=== PATIENT | female | born 1940 | race Caucasian/White ===

== ENCOUNTER 2017-09-09 04:15 | Inpatient (IN) | payer OTHER ==
[~2017-09-09] VITALS: Ht 154.9 cm; Wt 88.5 kg
[~2017-09-09 04:15] MED LIST: BYSTOLIC20 M1 PO; COUMADIN2.5 M1 PO; CRESTOR20 M2 PO; DILTIAZEM 24HR240 MG PO; GLUCOPHAGE500 M1 PO; LASIX40 M1 PO; LEVOTHYROXINE50 MCG PO; MULTIVITAMINS1 EAC9 PO; SLOW FE142 MG; SPIRONOLACTONE25 M1 PO; TRAMADOL HCL50 M1 PO; TYLENOL EXTRA500 M2 PO; VASOTEC20 M1 PO
[2017-09-09 10:46] LABS: PT 14.9 SEC (9.4-12.5)
--- NOTE | 2017-09-09 15:10 | Operative Report ---
Operative/Inv Procedure Report Surgery Date: 09/09/17 Name of Procedure: Right total hip replacement Pre-Operative Diagnosis: Primary right hip DJD Post-Operative Diagnosis: Same Estimated Blood Loss: 300 Surgeon/Lurer: Huong CUI,Param Burks Anesthesia: block Operative/Procedure Note Note: Description of Procedure: The patient was taken to the operating room and positively identified. After induction of spinal anesthesia and administration of appropriate pre-operative antibiotics, the patient was positioned supine on the operating room table and all bony prominences were well padded. After performing a surgical timeout, the right lower extremity was prepped and draped in the usual sterile fashion. A direct anterior approach was made to the right hip. The incision was carried sharply through superficial soft tissues to the level of the fascia. Meticulous hemostasis was maintained with Bovie electocautery. The fascia over the tensor fascia adrian muscle was opened sharply and the interval between the TFL and the sartorius was entered bluntly taking care to stay lateral to the lateral femoral cutaneous nerve. Retractors were placed around the femoral neck and the pericapsular fat was identified. The ascending branches of the lateral femoral circumflex vessels were identified and carefully coagulated. The pericapsular fat and anterior capsule were then resected. A napkin ring osteotomy was performed and the femoral head was removed without difficulty. Attention was then turned to the acetabulum. After appropriate placement of retractors, the acetabulum was exposed. Soft tissue was cleaned from the acetabular margin and notch. Overhanging osteophytes were removed and the teardrop was exposed. The acetabulum was then sequentially reamed to accept a 52 mm Juanito Tritanium hemispherical solid shell. This was impacted into place in the appropriate position and fitted with a 32 mm Trident X3 zero degree eccentric polyethylene insert. Attention was then turned to the femur. After performing the appropriate ligament releases, the proximal femur was exposed. It was then sequentially broached to accept a size #3 [place] Accolade 2 stem. This was trialed for leg length and stability. The trial component was removed and the final component was impacted into place. The trunnion was carefully cleaned and fit with a 32 mm, +4 Biolox delta ceramic femoral head. The hip was reduced and put through a full range of motion and found to be stable. The articular space was then irrigated with sterile saline. The periarticular soft tissues were infilitrated with Marcaine. The fascial layer was closed with interrupted #1 vicryl suture and the skin was re-approximated with interrupted 2 -0 vicryl. The skin was closed with a running 3-0 V-Lock suture. Steri-strips and a sterile dressing were applied. The patient was awakened and taken to the recovery room in satisfactory condition.
--- NOTE | 2017-09-09 15:58 | Admission Core Measures ---
Acute Coronary Syndrome (CM) ACS Core Measures Acute Coronary Syndrome Diagnosis No Congestive Heart Failure (NEW) CHF Core Measures Congestive Heart Failure Diagnosis No Cerebrovascular Accident (NEW) CVA Core Measures CVA/TIA Diagnosis No Venous Thromboembolism VTE Core Chloe (View Protocol) VTE Risk Factors Surgery No Mechanical VTE Prophylaxis d/t N/A MechProphylax Ordered No VTE Pharm Prophylaxis d/t NA PharmProphylax ordered Problem List As ranked by this Provider includes Assessment & Plan 1. Unilateral primary osteoarthritis, right hip HOME MEDS Home Med List Acetaminophen (Tylenol Extra Strength) 500 MG TABLET 2 TAB PO Q6 PAIN ( Reported) Diltiazem HCl (Diltiazem 24HR ER) 240 MG CAP.ER.24H 1 CAP PO DAILY CARDIAC ( Reported) Enalapril Maleate (Vasotec) 20 MG TABLET 1 TAB PO BID HTN (Reported) Furosemide (Lasix) 40 MG TABLET 1 TAB PO DAILY CARDIAC (Reported) Levothyroxine Sodium 50 MCG TABLET 1 TAB PO DAILY REPLACEMENT (Reported) Metformin Hydochloride (Glucophage) 500 MG TABLET 1 TAB PO BID DIABETES ( Reported) Multiple Vitamin (Multivitamins) 1 EACH TABLET 1 TAB PO DAILY SUPPLEMENT ( Reported) Nebivolol HCl (Bystolic) 20 MG TABLET 2 TAB PO DAILY CARDIAC (Reported) Rosuvastatin Calcium (Crestor) 20 MG TABLET 1 TAB PO DAILY CHOLESTEROL ( Reported) Spironolactone 25 MG TABLET 1 TAB PO DAILY HTN (Reported) Tramadol HCl 50 MG TABLET 1 TAB PO TIDPRN PAin (Reported) Warfarin Sodium (Coumadin) 2.5 MG TABLET 1 TAB PO DAILY AFIB (Reported)
[2017-09-09] MEDS ORDERED: PRILOSEC OTC20 M1 PO (16:01)
[2017-09-09] MEDS ORDERED: MIRALAX17 G1 PO (16:01)
[2017-09-09] MEDS ORDERED: DILAUDID2 M1 PO (16:01)
[2017-09-09] MEDS ORDERED: COLACE100 M1 PO (16:01)
[2017-09-09] MEDS ORDERED: ASPIRIN EC81 M1 PO (16:01)
--- NOTE | 2017-09-09 16:07 | Patient Discharge Instructions ---
Discharge Instructions General Discharge Information You were seen/treated for: Right hip pain related to unilateral primary osteoarthritis. Urinary tract infection You had these procedures: Right total hip replacement Watch for these problems: Increasing pain despite the use of pain medication Increasing redness, warmth or swelling Drainage of any type from incision Inability to bear weight on operative leg Persistent nausea and vomiting Fever greater than 101.5 degrees Pain or difficulty with urination Call Surgeon to remove: Lorraine Do not soak the wound: Yes No bath, but you may shower: Yes Other wound care: Please keep wound clean and dry. No ointments or lotions of any type on or near incision at any time. No exceptions. Your dressing will be changed by your nurse on the second day after your surgery. Daily dry dressing changes are recommended each day thereafter. Do not soak your wound in a bath at any time until otherwise indicated by your surgeon. You may shower, please dry wound immediately after shower with a clean towel. Special Instructions: Aspirin: You are taking this medication to help prevent blood clot formation while your coumadin level rises. Please take with food to protect your stomach lining. Please take as directed, Dr. Borja would like you to take it for three additional days following hospital discharge. Constipation: Pain medication can cause constipation. Dr. Borja has recommended that you take Colace and miralax each day. You may discontinue this medication if you develop loose stool or diarrhea. If you wish to continue this medication, it is available over the counter. If you are unable to move your bowels after several days, if you are unable to pass gas and are developing bloating, nausea, or vomiting as a result, please contact your doctor. Coumadin: You are taking this medication to help prevent the development of blood clots, both from surgery and from atrial fibrilation. Another name for this medication is warfarin. As I'm sure you are aware, the daily dose is subject to change. It is based on lab work called INR which will be tested at a minimum of two times per week. Dr. Borja or your desktop technician will instruct you as to how much Coumadin you are to be taking. Please be sure to have communicated with him or his office regarding your doses prior to taking. Diet Continue normal diet: Yes Recommended Diet: Heart Healthy Activity Full Activity/No Limits: No Activity Self Limited: Yes Pounds, do NOT lift more than: 10 Acute Coronary Syndrome Inclusion Criteria At DC or during hospital stay patient has or had the following: ACS DIAGNOSIS No Discharge Core Measures Meds if any: Prescribed or Continued at Discharge Meds if any: NOT Prescribed or Continued at Discharge Congestive Heart Failure Inclusion Criteria At DC or during hospital stay patient has or had the following: CHF DIAGNOSIS No Discharge Core Measures Meds if any: Prescribed or Continued at Discharge Meds if any: NOT Prescribed or Continued at Discharge Cerebrovascular accident Inclusion Criteria At DC or during hospital stay patient has or had the following: CVA/TIA Diagnosis No Discharge Core Measures Meds if any: Prescribed or Continued at Discharge Meds if any: NOT Prescribed or Continued at Discharge Venous thromboembolism Inclusion Criteria VTE Diagnosis No VTE Type NONE VTE Confirmed by (Test) NONE Discharge Core Measures - Per Current guidelines, there needs to be overlap - treatment for the first 5 days of Warfarin therapy. - If discharged on Warfarin prior to 5 days of - overlap therapy, the patient will need to be - assessed for post discharge needs including - *Post discharge parental anticoagulation - *Warfarin and/or parental anticoagulation education - *Follow up date to check INR post discharge At least 5 days overlap therapy as Inpatient No Meds if any: Prescribed or Continued at Discharge Note: Overlap Therapy is Warfarin and Anticoagulant Meds if any: NOT Prescribed or Continued at Discharge
--- NOTE | 2017-09-09 16:09 | Surgical Discharge Summary ---
Visit Information Visit Dates Admission Date: 09/09/17 Discharge Date: 09/14/17 History of Present Illness Chief Complaint: Right hip pain related to unilateral primary osteoarthritis Medical History Isolation History: Standard Surgical History Pertinent Surgical History: non-contributory Review of Systems: See H&P Hospital Course Course Attending Physician: Param Borja MD Primary Care Physician: Jessica Hospital Course: Patient was admitted to the hospital for an elective total joint replacement. The procedure was tolerated well and patient was transferred to a general surgical floor. Diet was advanced and tolerated.. The patient was evaluated and treated by physical therapy. She suffered from an episode of transient confusion post operatively and was evaluated by the medical team. A work up included a UA which was positive for a UTI and she was begun on augmentin. She was also felt to be somewhat dehydrated and was given a bolus of IV fluid. Her confusion resolved completely and no further work up was indicated. Her INR was therapeutic on coumadin and in fact elevated quickly to a supratherapeutic level which was monitored. At the time of hospital discharge, the vital signs were stable, neurovascular status was intact, and pain was controlled with the use of oral pain medications. Complications: None Allergies: Coded Allergies: No Known Allergies (09/08/17) Disposition Summary Disposition Principal Diagnosis: Right hip unilateral primary osteoarthritis Additional Diagnosis: None Discharge Disposition: home health services Discharge Instructions General Discharge Information Code Status: Full Code Patient's Diet: Heart healthy, advance as tolerated Patient's Activity: WBAT Follow-Up Instructions/Appts: Follow up with Dr. Borja in 6 weeks from date of surgery. Please call office to arrange &/or confirm this appointment. Medications at Discharge Discharge Medications: Stop taking the following medications: Tramadol HCl (Tramadol HCl) 50 MG TABLET ORAL THREE TIMES A DAY NEEDED Continue taking these medications: Diltiazem HCl (Diltiazem 24HR ER) 240 MG CAP.ER.24H 1 Capsule ORAL DAILY Furosemide (Lasix) 40 MG TABLET 1 Tablet ORAL DAILY Enalapril Maleate (Vasotec) 20 MG TABLET 1 Tablet ORAL TWICE DAILY Rosuvastatin Calcium (Crestor) 20 MG TABLET 1 Tablet ORAL DAILY Warfarin Sodium (Coumadin) 2.5 MG TABLET 1 Tablet ORAL DAILY Instructions: Dose according to INR. Goal INR 2-3. INR daily until stable. Comments: Note that patient is on antibiotics for a UTI and will need to have dose adjustment to avoid supratherapeutic INR Spironolactone (Spironolactone) 25 MG TABLET 1 Tablet ORAL DAILY Multiple Vitamin (Multivitamins) 1 EACH TABLET 1 Tablet ORAL DAILY Levothyroxine Sodium (Levothyroxine Sodium) 50 MCG TABLET 1 Tablet ORAL DAILY Nebivolol HCl (Bystolic) 20 MG TABLET 2 Tablet ORAL DAILY Acetaminophen (Tylenol Extra Strength) 500 MG TABLET 2 Tablet ORAL EVERY SIX HOURS Metformin Hydochloride (Glucophage) 500 MG TABLET 1 Tablet ORAL TWICE DAILY Ferrous Sulfate (Slow Fe) 142 MG (45 MG IRON) TABLET.ER Start taking the following new medications: Aspirin (Ecotrin*) 81 MG TABLET.DR 1 Tablet ORAL TWICE DAILY Qty = 6 No Refills Instructions: TAKE ONLY FOR THREE ADDITIONAL DAYS ONCE HOME FROM HOSPITAL Docusate Sodium (Colace) 100 MG CAPSULE 1 Capsule ORAL TWICE DAILY Qty = 14 No Refills Instructions: DISCONTINUE USE IF YOU DEVELOP LOOSE STOOL OR DIARRHEA Polyethylene Glycol 3350 (Miralax) 17 GRAM POWD.PACK 1 Packet ORAL DAILY Qty = 7 No Refills Instructions: dissolve in water, DISCONTINUE USE IF YOU DEVELOP LOOSE STOOL OR DIARRHEA Omeprazole Magnesium (Prilosec Otc) 20 MG TABLET.DR 1 Tablet ORAL DAILY Qty = 30 No Refills Augmentin (Augmentin 500-125 Tablet) 500 MG-125 MG TABLET 1 Tablet ORAL TWICE DAILY Qty = 12 No Refills
--- NOTE | 2017-09-09 16:42 | RADIOLOGY REPORT ---
EXAMINATION: XR HIP, RIGHT CLINICAL INFORMATION: Status post hip replacement COMPARISON: None TECHNIQUE: Two views of the right hip. FINDINGS: The patient is status post right total hip arthroplasty. On the AP view, the femoral head prosthesis is well centered within the acetabular cup and, on the lateral view, the femoral stem is well-positioned within the medullary cavity of the proximal femoral diaphysis. The proximal portion of the hardware is excluded from the [id number] on the crosstable lateral exam. No acute periprosthetic fracture. There is postoperative soft tissue swelling and soft tissue gas of the proximal thigh/hip with lateral skin nahomi in place. IMPRESSION: - The components of the right hip arthroplasty exhibit satisfactory position and alignment. - No acute periprosthetic fracture.
[2017-09-09 18:00] VITALS: BP 96/52
[2017-09-09 20:00] VITALS: BP 160/72
--- NOTE | 2017-09-09 20:50 | PN- Orthopedic ---
Subjective Subjective: POC tired. +void. no pt eval as was too late in day when arrived on floor. no n/v/ cp/sob Objective Vital Signs and I&Os Vital Signs Date Time Temp Pulse Resp B/P B/P Pulse O2 O2 Flow FiO2 Mean Ox Delivery Rate 09/09 2028 95 Nasal 2.0L Cannula Intake & Output 09/09 0809/09 0000 09/08 1600 09/08 0000 Intake Total Output Total Balance Patient 205 lb Weight Physical Exam: gen- nad [id number] pulm- ctab abd- soft nt ext- r hip dressing cdi, ice in place, nt. calves soft nt bl, alps on. palp dp bl. gross sensate intact bl le, +dorsi/plantar flexion Assessment/Plan Assessment/Plan A- POD0 sp R YOLANDA, stable, with minimal postop pain. P- ivf, i&os oob with pt, wbat prn pain meds asa 81bid x5days, Coumadin 5mg tonight- coum per inr riss, ada diet home meds dc planning Core Measures Venous Thromboembolism VTE Risk Factors Surgery No Mechanical VTE Prophylaxis d/t N/A MechProphylax Ordered No VTE Pharm Prophylaxis d/t NA PharmProphylax ordered
[2017-09-09 22:00] VITALS: BP 120/70
[2017-09-10 00:08] VITALS: BP 112/60
[2017-09-10 04:00] VITALS: BP 126/70
[2017-09-10 07:55] LABS: ABSOLUTE BASOPHIL COUNT 0 /CUMM (0.0-0.2); ABSOLUTE EOSINOPHIL COUNT 0 /CUMM (0.0-0.7); ABSOLUTE GRANULOCYTE CT 6.4 /CUMM (1.4-6.5); ABSOLUTE LYMPH COUNT 0.4 /CUMM (1.2-3.4); ABSOLUTE MONOCYTE COUNT 0.9 /CUMM (0.10-0.60); BASOPHIL % 0.3 % (0.0-2.0); EOSINOPHIL % 0.4 % (0-5); GRANULOCYTE % 82.3 % (42.2-75.2); HEMATOCRIT 29.7 % (37-47); MEAN CORPUSCULAR HGB 28.6 PG (27.0-31.0); MEAN CORPUSCULAR HGB CONC 33.4 G/DL (33.0-37.0); MEAN CORPUSCULAR VOLUME 85.8 FL (81.0-99.0); MEAN PLATELET VOLUME 7.8 FL (7.4-10.4); PLATELET COUNT 256 /CUMM (130-400); RBC DISTRIBUTION WIDTH 15.9 % (11.5-14.5); RED BLOOD CELL CT 3.47 /CUMM (4.20-5.40); WHITE BLOOD CELL COUNT 7.8 /CUMM (4.8-10.8)
--- NOTE | 2017-09-10 08:15 | PN- Orthopedic ---
Subjective Subjective: Awake, alert No complaints overnight Has not ambulated yet with PT Pain is well controlled Tolerating diet Objective Vital Signs and I&Os Vital Signs Date Time Temp Pulse Resp B/P B/P Pulse O2 O2 Flow FiO2 Mean Ox Delivery Rate 09/10 0400 97.9 67 20 126/70 96 Nasal Cannula 09/10 0008 98.0 69 20 112/60 94 Nasal Cannula 09/10 0000 Nasal 2.0L Cannula 09/09 2200 97.1 70 20 120/70 93 Nasal 2.0L Cannula 09/09 2028 95 Nasal 2.0L Cannula 09/10 1999 96.7 72 20 160/72 95 Nasal 2.0L Cannula 09/09 1800 97.2 54 16 96/52 97 Nasal 2.0L Cannula Intake & Output 09/10 0800 09/10 0000 09/09 1600 09/09 0809/09 0000 Intake Total 720 1450 Output Total 750 450 Balance -30 1000 Intake, IV 600 850 Intake, Oral 120 600 Number 0 Bowel Movements Output, Urine 750 450 Patient 195 lb Weight Weight Bed scale Measurement Method Physical Exam: General: alert and oriented times three Chest: clear anteriorly bilaterally, RRR Abd: softly, good bs Ext: warm, no edema, normosensate BLE, no calf tenderness, 5/5 JORJE BLE Wd: dressed, dry, ice pack in place Assessment/Plan Assessment/Plan 77yo female s/p R THR pod 1 pain management PT- WBAT dc planning - home with services vs rehab dvt ppx asa 81mg po bid Core Measures Venous Thromboembolism VTE Risk Factors Surgery No Mechanical VTE Prophylaxis d/t N/A MechProphylax Ordered No VTE Pharm Prophylaxis d/t NA PharmProphylax ordered
[2017-09-10 08:18] LABS: PT 16.9 SEC (9.4-12.5)
[2017-09-10 08:24] VITALS: BP 120/60
[2017-09-10 11:41] VITALS: BP 110/80
[2017-09-10 14:05] VITALS: BP 100/70
[2017-09-10 21:00] VITALS: BP 120/60
[2017-09-11 02:00] VITALS: BP 98/60
[2017-09-11 07:06] VITALS: BP 104/56
[2017-09-11 08:54] LABS: PT 38.3 SEC (9.4-12.5)
--- NOTE | 2017-09-11 11:55 | PN- Orthopedic ---
Subjective Subjective: Reports pain improves with dilaudid. She prefers taking 2mg versus 4mg at a time , which she feels causes some nausea. Tolerating diet. Passing flatus. No bm yet. Out of bed with rolling walker. No dizziness. No shortness of breath. No chest pains. Skin blisters along tape edge covering wound dressing noted today. Objective Vital Signs and I&Os Vital Signs Date Time Temp Pulse Resp B/P B/P Pulse O2 O2 Flow FiO2 Mean Ox Delivery Rate 09/11 1015 80 110/58 09/11 1014 80 110/58 09/11 0706 97.8 78 20 104/56 91 Room Air 09/11 0200 99.0 66 20 98/60 92 Room Air 09/11 0000 Room Air 09/10 2100 99.1 69 20 120/60 95 Room Air 09/10 1600 94 Room Air 09/10 1405 98.5 75 20 100/70 94 Room Air Intake & Output 09/11 1600 09/11 0800 09/11 0000 09/10 1600 09/10 0800 09/10 0000 Intake Total 480 869 786 2348 Output Total 750 450 Balance 480 480 -30 1000 Intake, IV 600 850 Intake, Oral 480 480 120 600 Number 0 0 Bowel Movements Output, Urine 750 450 Patient 195 lb Weight Weight Bed scale Measurement Method Physical Exam: General - alert & oriented x 3. comfortable. out of bed to chair. no acute distress. Lungs - clear bilaterally. no w/r/r. Cardiac - s1s2. reg. Abdomen - soft. nontender. Extremities - warm bilaterally. right hip dressing removed. skin blisters noted along tegaderm edge, some of which have broken with serous drainage. incision well approximated with nahomi. no erythema or exudates. calves soft and nontender b/l. nvi. Current Medications: Current Medications Sig/Grace Start time Last Medication Dose Route Stop Time Status Admin Acetaminophen 1,000 MG Q6H 09/10 0300 DC 09/10 IV 09/10 1501 0312 Aspirin Buffered 81 MG BID 09/09 2099 AC 09/11 PO 0922 Atorvastatin Calcium 80 MG 1700 09/09 1700 AC 09/10 PO 1630 Diltiazem HCl 240 MG BID 09/09 2099 AC 09/11 PO 1014 Docusate Sodium 100 MG BID 09/09 2099 AC 09/11 PO 09 Furosemide 40 MG DAILY 05899 AC 09/11 PO 0922 Hydromorphone HCl 2 MG Q4P PRN 09/09 174 AC 09/11 PO 1008 Hydromorphone HCl 4 MG Q4P PRN 09/09 174 AC 09/11 PO 0548 Insulin Aspart 0 TIDAC 09/11 799 09/11 SC 0923 Insulin Aspart 0 AT BEDTIME 09/09 2100 AC SC Levothyroxine Sodium 0.05 MG DAILY AC 09/10 699 09/11 PO 0548 Lisinopril 40 MG DAILY 09/10 899 09/11 PO 1014 Morphine Sulfate 2 MG Q2P PRN 09/09 174 AC IV Multivitamins 1 TAB DAILY 09/10 899 09/11 PO 0923 Nebivolol 40 MG DAILY 09/10 899 09/11 PO 1015 Omeprazole 40 MG DAILY 09/10 699 09/11 PO 0547 Ondansetron HCl 4 MG Q6P PRN 09/09 174 AC IV Patient Medication 1 ED ONE ONE 09/11 0945 [facility] ED 09/11 945 Patient Medication 1 ED ONE ONE 09/10 164 [place] 09/10 [facility] ED 09/10 1646 2035 Polyethylene Glycol 17 GM DAILY 09/10 899 09/11 PO 0923 Promethazine HCl 12.5 MG Q6P PRN 09/09 174 AC IV 09/16 1544 Spironolactone 25 MG DAILY 09/10 899 09/11 PO 0922 Warfarin Sodium 1 MG COUMADIN 1700 [facility] 09/11 1700 [facility] PO 09/11 1701 Warfarin Sodium 2.5 MG COUMADIN 1700 [facility] 09/10 170 [place] 09/10 PO 09/10 1701 1630 Results Last 48 Hours of Labs: Laboratory Tests 09/11 09/10 0659 0635 Chemistry Sodium (137 - 145 mmol/L) 141 Potassium (3.5 - 5.1 mmol/L) 4.4 Chloride (98 - 107 mmol/L) 106 Carbon Dioxide (22 - 30 mmol/L) 26 Anion Gap (5 - 16) 9 BUN (7 - 17 mg/dL) 12 Creatinine (0.5 - 1.0 mg/dL) 0.6 Estimated GFR (>60 ml/min) > 60 BUN/Creatinine Ratio (7 - 25 %) 20.0 Coagulation PT (9.4 - 12.5 SEC) 38.3 H 16.9 H INR (0.90 - 1.19) 3.47 H 1.54 H Hematology CBC w Diff NO MAN DIFF REQ WBC (4.8 - 10.8 /CUMM) 7.8 RBC (4.20 - 5.40 /CUMM) 3.47 L Hgb (12.0 - 16.0 G/DL) 9.9 L Hct (37 - 47 %) 29.7 L MCV (81.0 - 99.0 FL) 85.8 MCH (27.0 - 31.0 PG) 28.6 MCHC (33.0 - 37.0 G/DL) 33.4 RDW (11.5 - 14.5 %) 15.9 H Plt Count (130 - 400 /CUMM) 256 MPV (7.4 - 10.4 FL) 7.8 Gran % (42.2 - 75.2 %) 82.3 H Lymphocytes % (20.5 - 51.1 %) 5.5 L Monocytes % (1.7 - 9.3 %) 11.5 H Eosinophils % (0 - 5 %) 0.4 Basophils % (0.0 - 2.0 %) 0.3 Absolute Granulocytes (1.4 - 6.5 /CUMM) 6.4 Absolute Lymphocytes (1.2 - 3.4 /CUMM) 0.4 L Absolute Monocytes (0.10 - 0.60 /CUMM) 0.9 H Absolute Eosinophils (0.0 - 0.7 /CUMM) 0 Absolute Basophils (0.0 - 0.2 /CUMM) 0 Assessment/Plan Assessment/Plan This 77 year old female with hx afib, htn, hld, dm, hypothyroidism, is POD#2 s/p right total hip replacement for primary right hip DJD, with some superficial skin blisters from the tegaderm covering her wound / dressing tolerating diabetic diet continue PT dressing changed on R hip bacitracin applied to broken skin blisters INR supratherapeutic today, so will dose coumadin carefully (1mg today) f/u labs tomorrow (pt/inr, cbc, lytes) bowel regime ordered d/c planning for tomorrow case management to assist with dispo will d/w Core Measures Venous Thromboembolism VTE Risk Factors Surgery No Mechanical VTE Prophylaxis d/t N/A MechProphylax Ordered No VTE Pharm Prophylaxis d/t NA PharmProphylax ordered
[2017-09-11 13:31] VITALS: BP 90/60
[2017-09-11 20:35] VITALS: BP 100/60; BP 86/60
[2017-09-11 21:45] VITALS: BP 100/60
[2017-09-12 06:03] VITALS: BP 92/42
--- NOTE | 2017-09-12 08:21 | PN- Orthopedic ---
See Addendum Subjective Subjective: Patient seen and evaluated. No actute events overnight. Per PT note yesterday, pt is good canidate for acute rehab. She is ambulated, but below her baseline. She continue to have some right hip pain with major movements, but states this is getting better. Tolerating her diet without problems. Otherwise, patient doing well. Denies cp, sob, n/v/d, f/c/s. Objective Vital Signs and I&Os Vital Signs Date Time Temp Pulse Resp B/P B/P Pulse O2 O2 Flow FiO2 Mean Ox Delivery Rate 09/12 0603 97.6 87 20 92/42 94 Room Air 09/11 2145 98.0 73 20 100/60 92 09/11 2035 100/60 09/11 203 86/60 09/11 1407 Room Air 2.0L 09/11 1331 97.6 75 18 90/60 95 Room Air 09/11 1015 80 110/58 09/11 1014 80 110/58 Intake & Output 09/12 1600 09/12 0000 09/11 1600 09/11 0809/11 0000 Intake Total 360 360 360 480 Output Total Balance 360 360 360 480 Intake, Oral 360 360 360 480 Number 0 Bowel Movements Physical Exam: General: elderly female laying supine in bed, answer questions without problems, nad CV: RRR Pulm: CTA bilaterally Abdomen: obese, soft, nt/nd, +bs Extrmities: right hip dressing with some ss discharge, muliple clear blisters surround wound likely from tape, full rom, feet are warm and well perfused Neuro: [id number] Current Medications: Current Medications Sig/Grace Start time Last Medication Dose Route Stop Time Status Admin Aspirin Buffered 81 MG BID 09/09 PO 2052 Atorvastatin Calcium 80 MG 1700 09/09 1700 AC 09/11 PO 170 Diltiazem HCl 240 MG BID 09/09 2099 AC 09/11 PO 2052 Docusate Sodium 100 MG BID 09/09 PO 2052 Furosemide 40 MG DAILY 09/10 899 AC 09/11 PO 921 Hydromorphone HCl 2 MG Q4P PRN 09/09 174 AC 09/11 PO 100 Hydromorphone HCl 4 MG Q4P PRN 09/09 174 AC 09/11 PO 0548 Insulin Aspart 0 TIDAC 09/11 799 AC 09/11 SC 1708 Insulin Aspart 0 AT BEDTIME 09/09 2100 AC SC Levothyroxine Sodium 0.05 MG DAILY AC 09/10 07 AC 09/12 PO 0529 Lisinopril 40 MG DAILY 09/10 899 AC 09/11 PO 1014 Morphine Sulfate 2 MG Q2P PRN 09/09 1745 AC IV Multivitamins 1 TAB DAILY 09/10 899 AC 09/11 PO 0923 Nebivolol 40 MG DAILY 09/10 899 AC 09/11 PO 1015 Omeprazole 40 MG DAILY AC 09/10 699 AC 09/12 PO 0529 Ondansetron HCl 4 MG .STK-MED ONE 09/11 1252 DC IM 09/11 1253 Ondansetron HCl 4 MG Q6P PRN 09/09 1745 AC 09/11 IV 1312 Patient Medication 1 ED ONE ONE 09/11 0945 ND 09/12 Teaching ED 09/11 0946 0712 Polyethylene Glycol 17 GM DAILY 09/10 899 AC 09/11 PO 0923 Promethazine HCl 12.5 MG Q6P PRN 09/09 1745 AC IV 09/16 1544 Spironolactone 25 MG DAILY 09/10 899 AC 09/11 PO 0922 Warfarin Sodium 0.5 MG COUMADIN 1700 ONE 09/11 1700 DC 09/11 PO 09/11 1701 1707 Results Last 48 Hours of Labs: Laboratory Tests 09/11 0659 Coagulation PT (9.4 - 12.5 SEC) 38.3 H INR (0.90 - 1.19) 3.47 H Assessment/Plan Assessment/Plan This 77 year old female with hx afib, htn, hld, dm, hypothyroidism, is POD#3 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
[2017-09-12 10:30] VITALS: BP 110/54
[2017-09-12 12:09] LABS: ABSOLUTE BASOPHIL COUNT 0 /CUMM (0.0-0.2); ABSOLUTE EOSINOPHIL COUNT 0.1 /CUMM (0.0-0.7); ABSOLUTE GRANULOCYTE CT 8.4 /CUMM (1.4-6.5); ABSOLUTE LYMPH COUNT 0.4 /CUMM (1.2-3.4); ABSOLUTE MONOCYTE COUNT 0.8 /CUMM (0.10-0.60); BASOPHIL % 0.2 % (0.0-2.0); EOSINOPHIL % 1.1 % (0-5); GRANULOCYTE % 85.8 % (42.2-75.2); HEMATOCRIT 27.6 % (37-47); MEAN CORPUSCULAR HGB 27.9 PG (27.0-31.0); MEAN CORPUSCULAR HGB CONC 32.2 G/DL (33.0-37.0); MEAN CORPUSCULAR VOLUME 86.7 FL (81.0-99.0); MEAN PLATELET VOLUME 7.7 FL (7.4-10.4); PLATELET COUNT 302 /CUMM (130-400); RBC DISTRIBUTION WIDTH 16.1 % (11.5-14.5); RED BLOOD CELL CT 3.18 /CUMM (4.20-5.40); WHITE BLOOD CELL COUNT 9.8 /CUMM (4.8-10.8)
[2017-09-12 12:13] LABS: PT 41.7 SEC (9.4-12.5)
[2017-09-12 13:49] VITALS: BP 96/50
[2017-09-12 14:01] VITALS: BP 90/60
--- NOTE | 2017-09-12 17:07 | Cons- Medical ---
Madiha Santos MD 09/12/17 1707: General Information and HPI Consulting Request Date of Consult: 09/12/17 Requested By: Param Borja MD Reason for Consult: NINI and supratherapeutic INR Source of Information: patient Exam Limitations: no limitations History of Present Illness: 77-year-old female with past medical history paroxysmal atrial fibrillation on Coumadin, hyperlipidemia, type 2 diabetes, cirrhosis, hypertension and hypothyroidism who was admitted to the hospital for an elective total joint replacement due to severe debilitating osteoarthritis. The procedure was tolerated well and she is doing well with physical therapy. She was started on iron tabs by her PCP in august for severe fatigue and low H&H. She denies falls, fracture, fever or chills, nausea vomiting, bleeding from any orifice or dark stools. Allergies/Medications Allergies: Coded Allergies: No Known Allergies (09/08/17) Home Med List: Acetaminophen (Tylenol Extra Strength) 500 MG TABLET 2 TAB PO Q6 PAIN ( Reported) Aspirin (Ecotrin*) 81 MG TABLET.DR 1 TAB PO BID ANTICOAGULATION TAKE ONLY FOR THREE ADDITIONAL DAYS ONCE HOME FROM HOSPITAL Diltiazem HCl (Diltiazem 24HR ER) 240 MG CAP.ER.24H 1 CAP PO DAILY CARDIAC ( Reported) Docusate Sodium (Colace) 100 MG CAPSULE 1 CAP PO BID CONSITPATION DISCONTINUE USE IF YOU DEVELOP LOOSE STOOL OR DIARRHEA Enalapril Maleate (Vasotec) 20 MG TABLET 1 TAB PO BID HTN (Reported) Ferrous Sulfate (Slow Fe) 142 MG (45 MG IRON) TABLET.ER SUPPLEMENT (Reported) Furosemide (Lasix) 40 MG TABLET 1 TAB PO DAILY CARDIAC (Reported) Hydromorphone HCl (Dilaudid) 2 MG TABLET 1-2 TAB PO Q4-6 PRN PRN PAIN Levothyroxine Sodium 50 MCG TABLET 1 TAB PO DAILY REPLACEMENT (Reported) Metformin Hydochloride (Glucophage) 500 MG TABLET 1 TAB PO BID DIABETES ( Reported) Multiple Vitamin (Multivitamins) 1 EACH TABLET 1 TAB PO DAILY SUPPLEMENT ( Reported) Nebivolol HCl (Bystolic) 20 MG TABLET 2 TAB PO DAILY CARDIAC (Reported) Omeprazole Magnesium (Prilosec Otc) 20 MG TABLET.DR 1 TAB PO DAILY GI PROTECTION Polyethylene Glycol 3350 (Miralax) 17 GRAM POWD.PACK 1 PAC PO DAILY CONSTIPATION dissolve in water, DISCONTINUE USE IF YOU DEVELOP LOOSE STOOL OR DIARRHEA Rosuvastatin Calcium (Crestor) 20 MG TABLET 1 TAB PO DAILY CHOLESTEROL ( Reported) Spironolactone 25 MG TABLET 1 TAB PO DAILY HTN (Reported) Tramadol HCl 50 MG TABLET 1 TAB PO TIDPRN PAin (Reported) Warfarin Sodium (Coumadin) 2.5 MG TABLET 1 TAB PO DAILY AFIB (Reported) 2 TABS 4 DAYS/WK 3 TABS 3DAYS/WK Current Medications: Current Medications Sig/Grace Start time Last Medication Dose Route Stop Time Status Admin Acetaminophen 650 MG Q4P PRN 09/12 1245 AC 09/12 PO 1348 Aspirin Buffered 81 MG BID 09/09 2099 AC 09/12 PO 1043 Atorvastatin Calcium 80 MG 1700 09/09 1700 AC 09/11 PO 1708 Bisacodyl 10 MG DAILY PRN 09/12 1245 AC AK Diltiazem HCl 240 MG BID 09/09 2099 AC 09/12 PO 1043 Docusate Sodium 100 MG BID 09/09 2099 AC 09/12 PO 1043 Furosemide 40 MG DAILY 09/10 899 AC 09/12 PO 1044 Hydromorphone HCl 2 MG Q4P PRN 09/09 174 AC 09/11 PO 1008 Hydromorphone HCl 4 MG Q4P PRN 09/09 1745 AC 09/11 PO 0548 Insulin Aspart 0 TIDAC 09/11 799 AC 09/12 SC 1221 Insulin Aspart 0 AT BEDTIME 09/09 2099 AC SC Levothyroxine Sodium 0.05 MG DAILY AC 09/10 699 AC 09/12 PO 0529 Lisinopril 40 MG DAILY 09/10 899 AC 09/12 PO 1044 Morphine Sulfate 2 MG Q2P PRN 09/09 174 AC IV Multivitamins 1 TAB DAILY 09/10 899 AC 09/12 PO 1045 Nebivolol 40 MG DAILY 09/10 899 AC 09/11 PO 1015 Omeprazole 40 MG DAILY AC 09/10 699 AC 09/12 PO 0529 Ondansetron HCl 4 MG .STK-MED ONE 09/12 0135 DC IM 09/12 0136 Ondansetron HCl 4 MG Q6P PRN 09/09 1745 AC 09/11 IV 1312 Polyethylene Glycol 17 GM DAILY 09/10 899 AC 09/12 PO 1045 Promethazine HCl 12.5 MG Q6P PRN 09/09 1745 AC IV 09/16 1544 Spironolactone 25 MG DAILY 09/10 0900 AC 09/11 PO 0922 Review of Systems Review of Systems Constitutional: Reports: no symptoms. Cardiovascular: Reports: no symptoms. Respiratory: Reports: no symptoms. Past History Medical History Blood Transfusion Hx: Yes Neurological: NONE Cardiovascular: AFIB, hypertension, hyperlipidemia Endocrine: diabetes, hyperthyroidism Surgical History Surgical History: BACK SURGERY Psychosocial History Where Do You Live? Home Smoking Status: Former Smoker Exam & Diagnostic Data Last 24 Hrs of Vital Signs/I&O Vital Signs Date Time Temp Pulse Resp B/P B/P Pulse O2 O2 Flow FiO2 Mean Ox Delivery Rate 09/12 1401 97.8 67 20 90/60 95 Room Air 09/12 1349 70 96/50 09/12 1044 68 110/54 09/12 1030 98.4 68 18 110/54 97 Room Air 09/12 0603 97.6 87 20 92/42 94 Room Air 09/11 2145 98.0 73 20 100/60 92 09/11 2035 100/60 09/11 2035 86/60 Intake & Output 09/12 1600 09/12 0800 09/12 0000 Intake Total 560 360 360 Output Total Balance 560 360 360 Intake, Oral 560 360 360 Physical Exam General Appearance: well developed/nourished, no apparent distress, obese Eyes: Bilateral: PERRL, EOMI, pale conjunctivae. Respiratory: normal breath sounds, lungs clear Cardiovascular: regular rate/rhythm, edema Gastrointestinal: non-tender Extremities: 2+ pedal edema bilaterally, blister on lat aspect of Rt thigh close , surgical site CDI Last 24 Hrs of Labs/Paul: Laboratory Tests 09/12/17 1135: Anion Gap 13, Estimated GFR 44 L, BUN/Creatinine Ratio 23.3, PT 41.7 H, INR 3.77 H, CBC w Diff MAN DIFF ORDERED, RBC 3.18 L, MCV 86.7, MCH 27.9, MCHC 32.2 L, RDW 16.1 H, MPV 7.7, Gran % 85.8 H, Lymphocytes % 4.4 L, Monocytes % 8.5, Eosinophils % 1.1, Basophils % 0.2, Absolute Granulocytes 8.4 H, Absolute Lymphocytes 0.4 L, Absolute Monocytes 0.8 H, Absolute Eosinophils 0.1, Absolute Basophils 0, Platelet Estimate VERIFIED BY SMEAR, Polychromasia 1+, Poikilocytosis 1+, Anisocytosis 1+, Ovalocytes 1+ Assessment/Plan Assessment/Plan Problem List 1. Supratherapeutic INR 2. Acute kidney injury 3. Anemia 4. Type 2 diabetes 5. Liver cirrhosis 6. HTN, HLD, Hypothyroidism Plan -Hold Coumadin today; recheck INR in AM -Hold lasix, spironolacatone, lisinopril 2/2 NINI -Will recommend IVF N/S@75cc/hr x 500mls -Encourage oral intake -Repeat CBC/BEP in AM -She has been on daily iron at home for her anemia, would recommend continuing -Wound and pain management per surgical team -Continue her important home medications -Follow attending recommendations -Thank you for your consult; we will follow along with you Problem List: 1. Unilateral primary osteoarthritis, right hip 2. NINI (acute kidney injury) 3. Supratherapeutic INR 4. Anemia Copies To: Huong CUI,Param Consult Acknowledgment - Thank you for your consult request. Rudy CUI,[facility] 09/12/17 2616: Assessment/Plan Consult Acknowledgment - Thank you for your consult request. Attending MD Review Statement Attending Statement Attending MD Statement: examined this patient, discuss w/resident/PA/PHYSICAL THERAPY ASSISTANT, agreed w/resident/PA/PHYSICAL THERAPY ASSISTANT, reviewed EMR data (avail), discussed with nursing, reviewed images, amended to note Attending Assessment/Plan: 77 y/o M with pmh sig for AFIB, hypertension, hyperlipidemia, diabetes who is s/ p right hip THR POD #3, medical consult obtained for NINI, and supratherapeutic INR. Patient herself denies any complaints except that she does have mild pain in the right hip. She did feel slightly short of breath with physical therapy. Today her creatinine has bumped up although her baseline is normal. Noted that patient does take Lasix, lisinopril and spironolactone as one of her home medications. She does admit to taking less by mouth intake. She also has a subtherapeutic INR. Vital Signs Date Time Temp Pulse Resp B/P B/P Pulse O2 O2 Flow FiO2 Mean Ox Delivery Rate 09/12 1401 97.8 67 20 90/60 95 Room Air 09/12 1349 70 96/50 09/12 1044 68 110/54 09/12 1030 98.4 68 18 110/54 97 Room Air 09/12 0603 97.6 87 20 92/42 94 Room Air 09/11 2145 98.0 73 20 100/60 92 09/115 100/60 09/11/60 on exam: aox3, nad. cv; s1,s2, rrr resp; clear abd; soft, nt, bs+ ext; + TEDS, dressing right hip with a [place]. Laboratory Tests 09/12 1135 Chemistry Sodium (137 - 145 mmol/L) 135 L Potassium (3.5 - 5.1 mmol/L) 4.5 Chloride (98 - 107 mmol/L) 100 Carbon Dioxide (22 - 30 mmol/L) 22 Anion Gap (5 - 16) 13 BUN (7 - 17 mg/dL) 28 H Creatinine (0.5 - 1.0 mg/dL) 1.2 H Estimated GFR (>60 ml/min) 44 L BUN/Creatinine Ratio (7 - 25 %) 23.3 Coagulation PT (9.4 - 12.5 SEC) 41.7 H INR (0.90 - 1.19) 3.77 H Hematology CBC w Diff MAN DIFF ORDERED WBC (4.8 - 10.8 /CUMM) 9.8 RBC (4.20 - 5.40 /CUMM) 3.18 L Hgb (12.0 - 16.0 G/DL) 8.9 L Hct (37 - 47 %) 27.6 L MCV (81.0 - 99.0 FL) 86.7 MCH (27.0 - 31.0 PG) 27.9 MCHC (33.0 - 37.0 G/DL) 32.2 L RDW (11.5 - 14.5 %) 16.1 H Plt Count (130 - 400 /CUMM) 302 MPV (7.4 - 10.4 FL) 7.7 Gran % (42.2 - 75.2 %) 85.8 H Lymphocytes % (20.5 - 51.1 %) 4.4 L Monocytes % (1.7 - 9.3 %) 8.5 Eosinophils % (0 - 5 %) 1.1 Basophils % (0.0 - 2.0 %) 0.2 Absolute Granulocytes (1.4 - 6.5 /CUMM) 8.4 H Absolute Lymphocytes (1.2 - 3.4 /CUMM) 0.4 L Absolute Monocytes (0.10 - 0.60 /CUMM) 0.8 H Absolute Eosinophils (0.0 - 0.7 /CUMM) 0.1 Absolute Basophils (0.0 - 0.2 /CUMM) 0 Platelet Estimate (ADEQUATE) VERIFIED BY SMEAR Polychromasia 1+ Poikilocytosis 1+ Anisocytosis 1+ Ovalocytes 1+ Assessment and recommendations: 77 y/o M with pmh sig for AFIB, hypertension, hyperlipidemia, diabetes who is s/ p right hip THR POD #3, medical consult obtained for NINI, and supratherapeutic INR. Recommend holding Coumadin today and rechecking INR in the morning. Recommend gentle IV hydration with normal saline at 75 mL an hour 500 mL. Encourage by mouth fluids. Recommend holding Lasix, lisinopril and spironolactone temporarily for a day. Monitor blood pressure. It was low this morning but hopefully by holding these medications blood pressure should come up and IV fluids but also improve the blood pressure. Recommend checking BEP in the morning. Continue the rest of the medications. Avoid nephrotoxic medications. Thank you for allowing us to but despite in the care of this patient, will follow along with you.
[2017-09-12 22:02] VITALS: BP 98/60
[2017-09-13 06:25] VITALS: BP 100/50
--- NOTE | 2017-09-13 09:28 | PN- Orthopedic ---
See Addendum Subjective Subjective: No acute overnight events reported. Pt still having surgical pain. Feels tired when ambulating. Denies chest pain and shortness of breath at rest. Denies nausea and vomitting. Was having difficulty voiding yesterday but denies trouble today. Objective Vital Signs and I&Os Vital Signs Date Time Temp Pulse Resp B/P B/P Pulse O2 O2 Flow FiO2 Mean Ox Delivery Rate 09/13 0836 72 100/50 09/13 0625 98.5 72 20 100/50 99 Room Air 09/12 2202 97.5 60 20 98/60 95 09/12 1401 97.8 67 20 90/60 95 Room Air 09/12 1349 70 96/50 09/12 1044 68 110/54 09/12 1030 98.4 68 18 110/54 97 Room Air Intake & Output 09/13 1600 09/13 0800 09/13 0000 09/12 1600 09/12 0800 09/12 0000 Intake Total 600 320 560 360 360 Output Total Balance 600 320 560 360 360 Intake, IV 500 180 Intake, Oral 100 140 560 360 360 Physical Exam: General: Alert and oriented x3, no acute distress Cardiac: irregularly irregular Pulm: CTA bilaterally, non-labored respiratory effort Extremities: Moves all extremities, distal sensation grossly intact. Skin warm and well perfused. DP pulses palpable bilaterally. Bilateral calves soft and non-tender. Surgical site: Report of multiple blisters around incision, ?from tegaderm. Dressing is saturated, likely due to blister breakdown but concern for incisional drainage. Will monitor. Assessment/Plan Assessment/Plan This is a 77 year old female, pod 4, s/p R THR. PMH sig for afib, htn, hld, dm, hypothyroid. Has had a supratherapeutic INR post op, reaching 3.77 yesterday, coumadin has been held. Had an elevated creatinine of 1.2 yesterday, lisinopril , aldactone and lasix held. Today's labs pending -f/u INR, will likely hold coumadin today as well -bita: f/u Creatinine, pt reports improved voiding vs yesterday -Activity: OOB, wbat -Dressing, will change this am, monitor drainage, blisters vs incisional drainage -Dispo planning to str, likely tomorrow, awaiting bed placement Will discuss current situation and plan of care with DR. Borja Core Measures Venous Thromboembolism VTE Risk Factors Surgery No Mechanical VTE Prophylaxis d/t N/A MechProphylax Ordered No VTE Pharm Prophylaxis d/t NA PharmProphylax ordered
[2017-09-13 10:20] LABS: ABSOLUTE BASOPHIL COUNT 0 /CUMM (0.0-0.2); ABSOLUTE EOSINOPHIL COUNT 0.2 /CUMM (0.0-0.7); ABSOLUTE GRANULOCYTE CT 7.1 /CUMM (1.4-6.5); ABSOLUTE LYMPH COUNT 0.4 /CUMM (1.2-3.4); ABSOLUTE MONOCYTE COUNT 0.8 /CUMM (0.10-0.60); BASOPHIL % 0.2 % (0.0-2.0); GRANULOCYTE % 83.3 % (42.2-75.2); HEMATOCRIT 28.1 % (37-47); MEAN CORPUSCULAR HGB 28.4 PG (27.0-31.0); MEAN CORPUSCULAR HGB CONC 32.9 G/DL (33.0-37.0); MEAN CORPUSCULAR VOLUME 86.3 FL (81.0-99.0); PLATELET COUNT 315 /CUMM (130-400); PT 27.9 SEC (9.4-12.5); RBC DISTRIBUTION WIDTH 16.7 % (11.5-14.5); RED BLOOD CELL CT 3.25 /CUMM (4.20-5.40); WHITE BLOOD CELL COUNT 8.6 /CUMM (4.8-10.8)
--- NOTE | 2017-09-13 13:18 | PN- Att Addend ---
Attending Addendum Attending Brief Note Patient seen and examined, denies any complaints this morning. Later the nurse called me saying that patient was confused. Patient herself denies any pain. Her creatinine was slightly better today but not back to baseline. Her blood pressure continues to remain on the lower side. Vital Signs Date Time Temp Pulse Resp B/P B/P Pulse O2 O2 Flow FiO2 Mean Ox Delivery Rate 09/13 0836 72 100/50 09/13 0625 98.5 72 20 100/50 99 Room Air 09/12 2202 97.5 60 20 98/60 95 09/12 1401 97.8 67 20 90/60 95 Room Air 09/12 1349 70 96/50 On exam; aox3, nad. cv; s1,s2, rrr resp; clear abd; soft, nt, bs+ ext; + TEDS, dressing right hip. Laboratory Tests 09/13 624 Chemistry Sodium (137 - 145 mmol/L) 138 Potassium (3.5 - 5.1 mmol/L) 4.6 Chloride (98 - 107 mmol/L) 103 Carbon Dioxide (22 - 30 mmol/L) 23 Anion Gap (5 - 16) 12 BUN (7 - 17 mg/dL) 30 H Creatinine (0.5 - 1.0 mg/dL) 1.1 H Estimated GFR (>60 ml/min) 48 L BUN/Creatinine Ratio (7 - 25 %) 27.3 H Coagulation PT (9.4 - 12.5 SEC) 27.9 H INR (0.90 - 1.19) 2.54 H Hematology CBC w Diff MAN DIFF ORDERED WBC (4.8 - 10.8 /CUMM) 8.6 RBC (4.20 - 5.40 /CUMM) 3.25 L Hgb (12.0 - 16.0 G/DL) 9.2 L Hct (37 - 47 %) 28.1 L MCV (81.0 - 99.0 FL) 86.3 MCH (27.0 - 31.0 PG) 28.4 MCHC (33.0 - 37.0 G/DL) 32.9 L RDW (11.5 - 14.5 %) 16.7 H Plt Count (130 - 400 /CUMM) 315 MPV (7.4 - 10.4 FL) 8.0 Gran % (42.2 - 75.2 %) 83.3 H Lymphocytes % (20.5 - 51.1 %) 4.9 L Monocytes % (1.7 - 9.3 %) 9.6 H Eosinophils % (0 - 5 %) 2.0 Basophils % (0.0 - 2.0 %) 0.2 Absolute Granulocytes (1.4 - 6.5 /CUMM) 7.1 H Absolute Lymphocytes (1.2 - 3.4 /CUMM) 0.4 L Absolute Monocytes (0.10 - 0.60 /CUMM) 0.8 H Absolute Eosinophils (0.0 - 0.7 /CUMM) 0.2 Absolute Basophils (0.0 - 0.2 /CUMM) 0 Platelet Estimate (ADEQUATE) VERIFIED BY SMEAR Polychromasia 1+ Poikilocytosis 1+ Anisocytosis 1+ Ovalocytes 1+ Lashay Cells 1+ Assessment and recommendations: 77 y/o M with pmh sig for AFIB, hypertension, hyperlipidemia, diabetes who is s/ p right hip THR POD #4, medical consult obtained for NINI, and supratherapeutic INR. Recommend continuing gentle IV hydration. Continue to hold diuretics and lisinopril. Recheck BP in the morning. Agree with dosing Coumadin and rechecking INR in the morning. For her confusion, I see that patient has not received any narcotics over the last 2 days. I would recommend checking her urinalysis. Patient will need the orientation. Sometimes dehydration can be because of confusion. We will correct dehydration by giving her IV hydration. Would continue to avoid narcotics, benzos or any other delirium triggers. Postop care per surgery. Patient on Coumadin for DVT prophylaxis and has therapeutic INR today.
[2017-09-13 14:35] VITALS: BP 114/60
[2017-09-13 21:54] VITALS: BP 110/60
[2017-09-13 23:05] VITALS: BP 118/54
--- NOTE | 2017-09-13 23:13 | RADIOLOGY REPORT ---
EXAMINATION: CHEST 1 VIEW CLINICAL INFORMATION: Dyspnea upon exertion. COMPARISON: None. TECHNIQUE: An AP view of the chest is provided. FINDINGS: The cardiac silhouette is enlarged. There is no vascular congestion. The mediastinal and hilar contours are unremarkable. There are neither pleural effusions nor pneumothoraces. There are no consolidations. There is age-appropriate degenerative change at the before meals and glenohumeral joints. The osseous structures are otherwise unremarkable. IMPRESSION: Cardiomegaly. No acute airspace disease.
[2017-09-14 05:54] VITALS: BP 108/60
--- NOTE | 2017-09-14 07:42 | PN- Orthopedic ---
Subjective Subjective: POD#5 S/P RIGHT YOLANDA SITTING UP IN CHAIR EATING BREAKFAST DENIES CP, SOB, NO N+V WITH DIET CURRENTLY NO C/O CONFUSION, DIZZINESS APPRECIATE MEDICINE TEAM INPUT FOR UTI NAD CONFUSION NO MAJOR ISSUES OVERNIGHT Objective Vital Signs and I&Os Vital Signs Date Time Temp Pulse Resp B/P B/P Pulse O2 O2 Flow FiO2 Mean Ox Delivery Rate 09/14 0554 98.0 64 20 108/60 95 Room Air 09/13 2305 99.1 85 20 118/54 93 Room Air 09/13 2154 97.8 68 20 110/60 94 09/13 1435 114/60 09/13 1418 97.7 62 18 96 Room Air 09/13 0836 72 100/50 Intake & Output 09/14 0800 09/14 0000 09/13 1600 09/13 0800 09/13 0000 09/12 1600 Intake Total 076 981 8389 600 320 560 Output Total 400 300 600 Balance 200 500 460 600 320 560 Intake, IV 500 500 180 Intake, Oral 600 800 560 100 140 560 Output, Urine 400 300 600 Physical Exam: CV: RRR LUNGS: CLEAR ABD: SOFT, +BS EXT: RIGHT HIP WOUND WITH SEROUS DRAINAGE ON BANDAGE UNABALRE TO EXPRESS FLUID FROM WOUND NO FLUCTUANCE NOTED NO CELLULITIS PRESENT Assessment/Plan Assessment/Plan SURGICAL STABLE NOW PLAN CONT BY MOUTH ABX FRO UTI - WILL GET COMPLETE COURSE FROM MEDICAL TEAM CONT OOB WITH PT F/U AM LABS PLAN FOR REHAB D/C LATER TODAY Core Measures Venous Thromboembolism VTE Risk Factors Surgery No Mechanical VTE Prophylaxis d/t N/A MechProphylax Ordered No VTE Pharm Prophylaxis d/t NA PharmProphylax ordered
[2017-09-14 08:12] LABS: ABSOLUTE BASOPHIL COUNT 0 /CUMM (0.0-0.2); ABSOLUTE EOSINOPHIL COUNT 0.2 /CUMM (0.0-0.7); ABSOLUTE GRANULOCYTE CT 5.6 /CUMM (1.4-6.5); ABSOLUTE LYMPH COUNT 0.5 /CUMM (1.2-3.4); ABSOLUTE MONOCYTE COUNT 0.9 /CUMM (0.10-0.60); BASOPHIL % 0.5 % (0.0-2.0); EOSINOPHIL % 2.6 % (0-5); GRANULOCYTE % 77.6 % (42.2-75.2); HEMATOCRIT 26.6 % (37-47); MEAN CORPUSCULAR HGB 28.2 PG (27.0-31.0); MEAN CORPUSCULAR HGB CONC 32.7 G/DL (33.0-37.0); MEAN CORPUSCULAR VOLUME 86.3 FL (81.0-99.0); MEAN PLATELET VOLUME 7.5 FL (7.4-10.4); PLATELET COUNT 327 /CUMM (130-400); RBC DISTRIBUTION WIDTH 16.6 % (11.5-14.5); RED BLOOD CELL CT 3.08 /CUMM (4.20-5.40); WHITE BLOOD CELL COUNT 7.2 /CUMM (4.8-10.8)
[2017-09-14 08:16] LABS: PT 26.3 SEC (9.4-12.5)
[2017-09-14] MEDS ORDERED: AUGMENTIN 500-1 EACH PO (09:40)
[2017-09-14 11:35] VITALS: BP 108/60
== END 2017-09-14 12:10 | DRG 470 ==
LOC: SDA 04:15 → ENRESERV 15:56 → ENTRNSPT 17:48 → EDTRNSPTSTS 17:52 → EDTRNSPT 17:52 → 2NA 18:00 → CMPTRNSPT 18:20 → ENPENDDIS 09-14 09:35 → 2NA 09-14 12:10
PROVIDERS: Nurse Practitioner; Orthopaedic Surgery; Physician Assistant; Physician Assistant Surgical
PROC: 0SR903A Replacement of Right Hip Joint with Ceramic Synthetic Substitute, Uncemented, Open Approach (ICD-10-PCS; principal; 2017-09-09)
DX: M16.11 Unilateral primary osteoarthritis, right hip (principal); N17.9 Acute kidney failure, unspecified; I48.0 Paroxysmal atrial fibrillation; E86.0 Dehydration; K74.60 Unspecified cirrhosis of liver; E78.5 Hyperlipidemia, unspecified; I10 Essential (primary) hypertension; R79.1 Abnormal coagulation profile; Z79.01 Long term (current) use of anticoagulants
CPT/HCPCS: 2NASP; 36415; 36592; 71045; 73502-RT; 81001; 82436; 87086; 97110-GO; 97116-GO; 97161-GP; 97530-GO; J0131; J0690; J0735; J2405; J2550; J3490; J7040